=== PATIENT | male | born 1960 | race Hispanic/Latino ===

== ENCOUNTER 2021-10-01 19:07 | Emergency (ER) | payer BC, OTHER ==
[2021-10-01] MEDS ORDERED: Ondansetron ODT 4 MG TAB ONE (19:53)
[2021-10-01] MEDS ORDERED: Ibuprofen 200 MG TAB ONE (19:53)
== END 2021-10-01 19:57 | disposition home or self-care (01) ==
LOC: NAV ERS 19:07
DX: R51.9 Headache, unspecified (principal); R11.2 Nausea with vomiting, unspecified
CPT/HCPCS: 99283; Q0162